=== PATIENT | male | born 1940 | race Caucasian/White ===

== ENCOUNTER → 2020-02-16 | Outpatient (CLI) | payer MEDICARE, OTHER ==
--- NOTE | 2020-02-18 10:21 | ONC ---
[place] [address] RADIATION ONCOLOGY NOTE Name: BABITA GODINEZ Room: [facility]#: [id number] Admission: 02/16/20 Attend Phys: Kayode Willingham MD Discharge: Date of : 38 Report #: [id number] THIS REPORT FOR: //name// CC: Kayode Hobson DATE OF PROCEDURE: 02/16/2020 PROCEDURE NOTE REFERRING PHYSICIANS: Dr. Tank Herrmann, Dr. Ramirez Hobson and Dr. Wayne Rico. 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 PROCEDURE: Nasopharyngolaryngoscopy. FINDINGS: On nasopharyngolaryngoscopy, after application of 2% viscous lidocaine to the left nostril and 2% viscous lidocaine orally, there were no suspicious visible lesions in the left nostril, there were no suspicious visible lesions in the nasopharynx and no suspicious visible lesions in the posterior oropharynx. True vocal cords were normally mobile bilaterally without any visible lesions. Thank you for allowing me to participate in the care of this patient. <ELECTRONICALLY SIGNED> By: Kayode Willingham MD 02/18/20 1021 [id number] [id number] Willingham MD /nt
--- NOTE | 2020-02-18 10:30 | ONC ---
[address] [address] RADIATION ONCOLOGY NOTE Name: BABITA GODINEZ Room: [facility].#: [id number] Admission: 02/16/20 Attend Phys: Kayode Willingham MD Discharge: Date of : 38 Report #: [id number] THIS REPORT FOR: //name// CC: Kayode Hobson DATE OF SERVICE: 02/16/2020 RADIATION ONCOLOGY CONSULT NOTE [facility] REFERRING PHYSICIANS: Include Wayne Rico MD, Dr. Tank Herrmann and Dr. Ramirez Hobson. PRIMARY SITE AND HISTOPATHOLOGY: The patient underwent resection of a right oral cavity cancer via a right partial glossectomy and right pharyngectomy for a squamous cell cancer. He had positive margin on the right pharyngeal specimen. HISTORY OF PRESENT ILLNESS: The patient indicated that he had a lesion involving the right oral cavity for several months, at least since 12/2019. He had a CT scan of the chest on 01/01/2020, which showed old granulomatous disease. He also had a CT of the soft neck, which showed asymmetry of the left oropharyngeal mucosal space. The patient went on to undergo a biopsy on 12/19/2019 of the right retromolar trigone, which revealed invasive squamous cell cancer and he went on to undergo a right partial glossectomy and right pharyngectomy. The glossectomy specimen revealed invasive well-differentiated squamous cell cancer, which was 0.9 cm in greatest dimension with a depth of invasion of 0.2 cm and the margins were negative for malignancy. 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 There was no lymphovascular invasion or perineural invasion. He does wear partials in the lower mouth and he also does wear upper dentures and he presents to discuss the possible role of radiation therapy. PAST MEDICAL HISTORY AND PAST SURGICAL HISTORY: He has hypertension. MEDICATIONS: Include ProAir, aspirin, carvedilol, Combivent inhaler, levocetirizine and tramadol as needed. ALLERGIES: He really does not have any specific allergies. ANTIBIOTICS AND PAIN MEDICINES [place] [address] RADIATION ONCOLOGY NOTE Name: BABITA GODINEZ Room: [facility]#: [id number] Admission: 02/16/20 Attend Phys: Kayode Willingham MD Discharge: Date of : 38 Report #: [id number] FAMILY HISTORY: Colon cancer in a brother. SOCIAL HISTORY: The patient is retired. He is . He has 2 sons and smokes about 2-3 cigars per day. He used to smoke cigarettes and he changed to cigars and has been smoking for 63 years. Ethanol: at this time he does not drink alcohol containing drinks, but he did drink alcohol-containing drinks in the past. REVIEW OF SYSTEMS: GENERAL: He denied having fevers or chills. SKIN: He denied having color changes. LYMPH NODES: He denied having enlarged or painful glands in the neck. ENDOCRINE: He denied any hot or cold intolerance. HEMATOLOGY AND IMMUNOLOGY: He denied having any anemia. MUSCULOSKELETAL: He does have arthritis. HEAD AND NECK: He does have a sore throat. RESPIRATORY: He does get short of breath with moderate exertion. CARDIOVASCULAR: He denied having any palpitations. GASTROINTESTINAL: He denied having nausea or vomiting. NEUROLOGIC: He denied having any focal weakness. PHYSICAL EXAMINATION: VITAL SIGNS: Height 5 feet 6 inches, weight 113.4 pounds, blood pressure 182/62, pulse 57, temperature 98.6 degrees Fahrenheit, oxygen 97%. GENERAL: He was alert and oriented LYMPH NODES: He had no palpable cervical or supraclavicular lymphadenopathy. HEAD, EARS, NOSE AND THROAT: Mouth did have a small nodular area in the right pharyngeal area. There were no palpable suspicious masses. On nasopharyngolaryngoscopy, after 2% viscous lidocaine orally, 2% viscous lidocaine to the left nostril, there were no suspicious visible lesions in the left nostril or the nasopharynx or posterior oropharynx. The true vocal cords were normally mobile bilaterally. EYES: Pupils were equal, round, and reactive to light and accomodation. HEART: Had a regular rate and rhythm without murmur. LUNGS: were clear to auscultation. ABDOMEN:Not tender. Spleen was not palpable. Liver was at the costal margin. EXTREMITIES: No clubbing, cyanosis or edema. NEUROLOGIC: Cranial nerves 2-12 are intact. Sensation was intact. He had 4/5 strength in his extremities. He still has some lower teeth. ASSESSMENT AND PLAN: The patient had a positive margin at the area of resection of an oral cavity/pharyngeal cancer. So, he was offered postoperative radiation therapy because of the positive margin. He will be a good candidate for intensity modulated radiation therapy. I will probably go ahead and order a scan and to further stage the patient [place] [address] RADIATION ONCOLOGY NOTE Name: BABITA GODINEZ Room: [facility]#: [id number] Admission: 02/16/20 Attend Phys: Kayode Willingham MD Discharge: Date of : 38 Report #: [id number] medical oncologist, Dr. Basilio after the scan to see if there is any role for any other systemic therapy. The risks, benefits, logistics of radiation therapy were explained to the patient in detail. The patient gave his witnessed, informed consent to proceed with radiation therapy. Thank you very much for this consult. <ELECTRONICALLY SIGNED> By: Kayode Willingham MD 02/18/20 1030 [id number] Willingham MD /nt
== END ==
LOC: M.RTH 13:00
PROVIDERS: ATTEND Radiology Radiation Oncology
DX: Z08 Encounter for follow-up examination after completed treatment for malignant neoplasm (principal); Z85.818 Personal history of malignant neoplasm of other sites of lip, oral cavity, and pharynx

== ENCOUNTER 2020-05-04 18:38 | Inpatient (IN) | payer MEDICARE, OTHER ==
[~2020-05-04] VITALS: Ht 167.6 cm; Wt 46.3 kg
[2020-05-04 18:45] VITALS: BP 128/97
[2020-05-04 19:02] LABS: ABSOLUTE LYMPHOCYTES 0.2 thou/uL (0.8-5.3); ABSOLUTE MONOCYTES 0.4 thou/uL (0.0-1.2); BASOPHILS 0.3 %; EOSINOPHILS 0.4 %; HEMATOCRIT 42.3 % (42.0-52.0); HEMOGLOBIN 14.3 gm/dL (14.0-18.0); LYMPHOCYTES 6.3 %; MCH 32.3 pg (26.0-34.0); MCHC 33.8 g/dL (28.0-37.0); MCV 95.6 fL (80.0-100.0); MONOCYTES 14.4 %; MPV 6.7 fl. (7.2-11.1); NUCLEATED RBCS 0 /100WBC; PLATELET COUNT* 168 thou/uL (150-400); POLYS 78.6 %; RBC 4.43 mil/uL (4.50-6.00); RDW-CV 13.9 % (10.5-14.5); WBC 2.5 thou/uL (4.0-11.0)
[2020-05-04 19:11] LABS: CALCIUM 8.9 mg/dL (8.5-10.1); CREATININE 1.2 mg/dL (0.6-1.3); POTASSIUM 4.3 mmol/L (3.5-5.1)
[2020-05-04 19:13] LABS: APTT 26.3 Seconds (25.0-31.3); INR 1.4; PROTIME 14.2 Seconds (9.20-11.50)
[2020-05-04] MEDS ORDERED: COREG6.25 MG PO (19:20)
[2020-05-04] MEDS ORDERED: ASA81BEC PO (19:20)
[2020-05-04] MEDS ORDERED: ACETAMINOPHEN500 M1 PO (19:20)
[2020-05-04] MEDS ORDERED: MAGIC MOUTHWASH SWISH&SPIT (19:21)
[2020-05-04] MEDS ORDERED: FISH OIL 1,0001 EAC9 PO (19:21)
[2020-05-04 19:22] LABS: ALBUMIN 3.4 g/dL (3.4-5.0); TOTAL BILIRUBIN 0.9 mg/dL (<0.1-1.0); TOTAL PROTEIN 6.9 g/dL (6.4-8.2)
[2020-05-04] MEDS ORDERED: NORCO 5-325 TA1 EAC2 PO (19:22)
[2020-05-04] MEDS ORDERED: ATROVENT HFA14 GM INH (19:23)
[2020-05-04] MEDS ORDERED: SUPER THERAVIT1 EACH PO (19:24)
[2020-05-04] MEDS ORDERED: ONDANSETRON ODT8 MG PO (19:24)
[2020-05-04] MEDS ORDERED: XYZAL5 MG PO (19:24)
[2020-05-04] MEDS ORDERED: SUPER BETA PROSTATE (19:25)
[2020-05-04] MEDS ORDERED: PROAIR HFA8.5 GM INH (19:25)
[2020-05-04] MEDS ORDERED: SSD CREAM 1% 5050 GM TOP (19:25)
[2020-05-04] MEDS ORDERED: VITAMIN D310 MC2 PO (19:26)
[2020-05-04 21:44] VITALS: BP 119/55
[2020-05-04 22:00] VITALS: BP 197/76
[2020-05-05] VITALS: BP 152/76
[2020-05-05 04:00] VITALS: BP 152/59
[2020-05-05 08:40] VITALS: BP 194/76
[2020-05-05 10:15] LABS: CALCIUM 7.8 mg/dL (8.5-10.1); CREATININE 0.6 mg/dL (0.6-1.3); POTASSIUM 3.6 mmol/L (3.5-5.1)
[2020-05-05 10:18] LABS: MAGNESIUM 1.9 mg/dL (1.8-2.4); PHOSPHORUS* 2.1 mg/dL (2.5-4.9)
[2020-05-05 12:28] VITALS: BP 149/75
[2020-05-05 17:02] VITALS: BP 159/69
[2020-05-05 21:00] VITALS: BP 160/65
[2020-05-05 22:30] LABS: URINE BILIRUBIN NEGATIVE (Negative); URINE BLOOD NEGATIVE (Negative); URINE CLARITY CLEAR; URINE COLOR YELLOW; URINE GLUCOSE-RANDOM NEGATIVE (Negative); URINE KETONES 1+ (Negative); URINE LEUKOCYTES-REFLEX NEGATIVE (Negative); URINE NITRITE-REFLEX NEGATIVE (Negative); URINE PROTEIN NEGATIVE (Negative); URINE SPECIFIC GRAVITY 1.025 (1.005-1.030)
[2020-05-06] VITALS: BP 169/79
[2020-05-06 04:34] LABS: HEMATOCRIT 31.7 % (42.0-52.0); MCH 32.6 pg (26.0-34.0); MCHC 34.9 g/dL (28.0-37.0); MCV 93.3 fL (80.0-100.0); MPV 6.8 fl. (7.2-11.1); RBC 3.39 mil/uL (4.50-6.00); RDW-CV 13.3 % (10.5-14.5)
[2020-05-06 04:58] LABS: CALCIUM 7.5 mg/dL (8.5-10.1); CREATININE 0.6 mg/dL (0.6-1.3); MAGNESIUM 1.6 mg/dL (1.8-2.4)
[2020-05-06 05:37] LABS: HEMOGLOBIN 11.1 gm/dL (14.0-18.0); POTASSIUM 2.8 mmol/L (3.5-5.1); WBC 1.3 thou/uL (4.0-11.0)
[2020-05-06 05:40] VITALS: BP 156/68
[2020-05-06 08:00] VITALS: BP 170/58
--- NOTE | 2020-05-06 08:56 | EKG ---
[place] [address] ELECTROCARDIOGRAM REPORT Name: BABITA GODINEZ Room: [address] ADM IN M.R.#: [id number] Admission: 05/04/20 Attend Phys: Carlos Eduardo Barnard, Discharge: Date of : 38 Date of Service: 05/04/20 1849 Report #: [id number] THIS REPORT FOR: //name// [facility] ED Test Date: 2020-05-04 Test Time: 18:49:45 Pat Name: BABITA GODINEZ Department: Room: [facility] Gender: M Laboratory Apparatus [employer]: [place] : [id number] Requested By: Fabiano Roman Order Number: [id number] MD: Gab Cruz Measurements Intervals [place] Rate: 157 P: MO: QRS: 83 QRSD: 87 T: -88 QT: 261 QTc: 422 Interpretive Statements Atrial fibrillation with rapid V-rate Borderline right axis deviation Repolarization abnormality, prob rate related Baseline wander in lead(s) II,aVR,aVF,V3 No previous ECG available for comparison Electronically Signed On 05-06-2020 8:56:13 [employer]ANDER [employer] by Gab Cruz [email or web address] <ELECTRONICALLY SIGNED> By: Gab Cruz MD, FACC 05/06/20 0856 184 Gab Cruz MD, FAC /EPI
[2020-05-06 15:56] VITALS: BP 134/73
[2020-05-06 20:00] VITALS: BP 133/79
[2020-05-07 00:22] VITALS: BP 125/53
[2020-05-07 04:15] VITALS: BP 112/51
[2020-05-07 04:38] LABS: HEMATOCRIT 30.6 % (42.0-52.0); HEMOGLOBIN 10.7 gm/dL (14.0-18.0); MCH 32.3 pg (26.0-34.0); MCHC 34.9 g/dL (28.0-37.0); MCV 92.6 fL (80.0-100.0); RBC 3.31 mil/uL (4.50-6.00); RDW-CV 13.2 % (10.5-14.5)
[2020-05-07 05:13] LABS: WBC 1.6 thou/uL (4.0-11.0)
[2020-05-07 05:14] LABS: CALCIUM 7.6 mg/dL (8.5-10.1); CREATININE 0.7 mg/dL (0.6-1.3); MAGNESIUM 1.6 mg/dL (1.8-2.4); POTASSIUM 3.1 mmol/L (3.5-5.1)
[2020-05-07 08:09] VITALS: BP 151/61
[2020-05-07 12:39] VITALS: BP 122/60
--- NOTE | 2020-05-07 14:21 | CON ---
[address] [address] CONSULTATION Name: HERBERTBABITA Cinda Room: [address] IN M.R.#: [id number] Admission: 05/04/20 Attend Phys: Carlos Eduardo Barnard MD Discharge: Date of : 38 Report #: [id number] THIS REPORT FOR: //name// cc: Physician not on staff Physician not on staff ~ DATE OF SERVICE: 05/05/2020 HISTORY OF PRESENT ILLNESS: This is a pleasant 79-year-old gentleman with past medical history significant for head and neck cancer, status post resection and radiation, who is presenting with inability to swallow solids and liquids. The patient reports pain with swallowing as well as intermittent cough and expectoration. The patient was offered a PEG tube placement in the past, but refused, but is now ready for PEG tube placement. He denies having a prior EGD in the past. PAST MEDICAL HISTORY: Hypertension, SCC of the tongue. PAST SURGICAL HISTORY: Resection and radiation to the head and neck region. SOCIAL HISTORY: The patient has a 1-pack-year smoking history. Denies alcohol or recreational drug use. FAMILY HISTORY: No family history of GI malignancies. REVIEW OF SYSTEMS: Comprehensive 10-point review of systems is negative except for what was mentioned in the HPI. PHYSICAL EXAMINATION: VITAL SIGNS: Temperature 36.7, pulse rate 57, respirations 19, blood pressure 152/59, pulse ox 94%. GENERAL: The patient is alert, awake, oriented x 3. HEENT: Pupils are equal, round, reactive to light and accommodation. Mucous membranes are moist. There is no congestion. LUNGS: Clear to auscultation bilaterally. CARDIOVASCULAR: Rate and rhythm regular, S1, S2 present. ABDOMEN: Soft. There is no distention, guarding or rigidity. EXTREMITIES: Warm, well perfused. There is no clubbing or edema. LABORATORY DATA: Hemoglobin 14.3, hematocrit 42.3, platelet count 168, WBC count 2.5. INR 1.4. Sodium 137, potassium 3.6, chloride 101, bicarbonate 28, BUN 25, creatinine 0.6. ASSESSMENT AND PLAN: Pleasant 79-year-old male presenting with painful swallowing and dysphagia, status post resection [place] [address] CONSULTATION Name: BABITA GODINEZ Room: [address] IN [facility]#: [id number] Admission: 05/04/20 Attend Phys: Carlos Eduardo Barnard MD Discharge: Date of : 38 Report #: [id number] cancer of the posterior tongue. I will proceed with EGD and possible PEG tube placement tomorrow. The benefits and risks of the procedure have been discussed with the patient. Further recommendations will be based on the results of the procedures. <ELECTRONICALLY SIGNED> By: Jaime Ontiveros MD 05/07/20 1421 1025 Sudhir Ontiveros MD /anabelle
[2020-05-07 17:27] VITALS: BP 136/61
[2020-05-07 20:15] VITALS: BP 114/66
[2020-05-08] VITALS: BP 136/61
[2020-05-08 04:00] VITALS: BP 150/53
[2020-05-08 04:01] LABS: ABSOLUTE LYMPHOCYTES 0.1 thou/uL (0.8-5.3); ABSOLUTE MONOCYTES 0.3 thou/uL (0.0-1.2); ABSOLUTE NEUTROPHILS 1.8 thou/uL (1.6-8.1); BASOPHILS 0.5 %; EOSINOPHILS 1.1 %; HEMATOCRIT 28.9 % (42.0-52.0); HEMOGLOBIN 10.1 gm/dL (14.0-18.0); LYMPHOCYTES 4.4 %; MCH 32.4 pg (26.0-34.0); MCHC 35.1 g/dL (28.0-37.0); MCV 92.5 fL (80.0-100.0); MONOCYTES 11.8 %; MPV 6.7 fl. (7.2-11.1); NUCLEATED RBCS 0 /100WBC; PLATELET COUNT* 100 thou/uL (150-400); POLYS 82.2 %; RBC 3.12 mil/uL (4.50-6.00); WBC 2.2 thou/uL (4.0-11.0)
[2020-05-08 04:26] LABS: ALBUMIN 2.1 g/dL (3.4-5.0); CREATININE 0.8 mg/dL (0.6-1.3); TOTAL BILIRUBIN 0.6 mg/dL (<0.1-1.0); TOTAL PROTEIN 4.9 g/dL (6.4-8.2)
[2020-05-08 08:35] VITALS: BP 149/69
[2020-05-08 12:11] VITALS: BP 143/70
[2020-05-08 16:05] VITALS: BP 146/66
[2020-05-08 20:00] VITALS: BP 123/63
[2020-05-09] VITALS (7 sets, daily range): BP systolic 103–134; BP diastolic 52–78
[2020-05-09 04:30] LABS: ABSOLUTE LYMPHOCYTES 0.1 thou/uL (0.8-5.3); ABSOLUTE MONOCYTES 0.2 thou/uL (0.0-1.2); ABSOLUTE NEUTROPHILS 2.2 thou/uL (1.6-8.1); BASOPHILS 0.3 %; EOSINOPHILS 0.9 %; HEMATOCRIT 32.2 % (42.0-52.0); HEMOGLOBIN 11.1 gm/dL (14.0-18.0); LYMPHOCYTES 4.2 %; MCH 32.2 pg (26.0-34.0); MCHC 34.3 g/dL (28.0-37.0); MCV 93.7 fL (80.0-100.0); MONOCYTES 9.3 %; NUCLEATED RBCS 0 /100WBC; PLATELET COUNT* 118 thou/uL (150-400); POLYS 85.3 %; RBC 3.44 mil/uL (4.50-6.00); RDW-CV 13.6 % (10.5-14.5); WBC 2.6 thou/uL (4.0-11.0)
[2020-05-09 04:57] LABS: ALBUMIN 2.3 g/dL (3.4-5.0); CALCIUM 8.1 mg/dL (8.5-10.1); CREATININE 0.7 mg/dL (0.6-1.3); POTASSIUM 3.5 mmol/L (3.5-5.1); TOTAL BILIRUBIN 0.5 mg/dL (<0.1-1.0); TOTAL PROTEIN 5.1 g/dL (6.4-8.2)
[2020-05-10 04:43] LABS: HEMATOCRIT 29.4 % (42.0-52.0); HEMOGLOBIN 10.2 gm/dL (14.0-18.0); MCH 32.4 pg (26.0-34.0); MCHC 34.7 g/dL (28.0-37.0); MCV 93.3 fL (80.0-100.0); MPV 7.4 fl. (7.2-11.1); NUCLEATED RBCS 0 /100WBC; PLATELET COUNT* 106 thou/uL (150-400); RBC 3.15 mil/uL (4.50-6.00); RDW-CV 13.7 % (10.5-14.5)
[2020-05-10 04:59] LABS: WBC 1.9 thou/uL (4.0-11.0)
[2020-05-10 05:09] LABS: ALBUMIN 2.2 g/dL (3.4-5.0); CREATININE 0.7 mg/dL (0.6-1.3); POTASSIUM 3.3 mmol/L (3.5-5.1); TOTAL BILIRUBIN 0.4 mg/dL (<0.1-1.0)
[2020-05-10 05:16] VITALS: BP 138/45
[2020-05-10 07:57] LABS: ABSOLUTE LYMPHOCYTES 0.4 thou/uL (0.8-5.3); ABSOLUTE MONOCYTES 0.2 thou/uL (0.0-1.2); ABSOLUTE NEUTROPHILS 1.3 thou/uL (1.6-8.1)
[2020-05-10 07:58] LABS: PLATELET ESTIMATE ADEQUATE
[2020-05-10 08:00] VITALS: BP 138/54
[2020-05-10] MEDS ORDERED: POTASSIUM20 MEQ/15 PERTUBE (08:25)
[2020-05-10 11:30] VITALS: BP 138/69
[2020-05-10 17:00] VITALS: BP 149/69
[2020-05-10 20:10] VITALS: BP 135/66
[2020-05-11 05:22] VITALS: BP 168/80
[2020-05-11] MEDS ORDERED: LEVOFLOXAC250 MG/10 PER TUBE (08:35)
[2020-05-11 09:00] VITALS: BP 150/66
[2020-05-11 12:37] VITALS: BP 131/57
[2020-05-11 16:39] VITALS: BP 158/66
[2020-05-11 20:00] VITALS: BP 100/76
[2020-05-12] VITALS: BP 153/74
[2020-05-12 04:00] VITALS: BP 143/80
[2020-05-12 08:00] VITALS: BP 149/72
[2020-05-12 13:24] VITALS: BP 142/63
[2020-05-12 16:45] VITALS: BP 132/69
[2020-05-12 20:00] VITALS: BP 131/60
[2020-05-13] VITALS (7 sets, daily range): BP systolic 116–165; BP diastolic 56–88
[2020-05-14 03:52] VITALS: BP 148/82
[2020-05-14 08:20] VITALS: BP 142/53
[2020-05-14 10:41] LABS: ABSOLUTE LYMPHOCYTES 0.2 thou/uL (0.8-5.3); ABSOLUTE MONOCYTES 0.3 thou/uL (0.0-1.2); ABSOLUTE NEUTROPHILS 1.8 thou/uL (1.6-8.1); BASOPHILS 0.6 %; EOSINOPHILS 0.8 %; HEMATOCRIT 31.2 % (42.0-52.0); HEMOGLOBIN 10.7 gm/dL (14.0-18.0); LYMPHOCYTES 7.4 %; MCH 32.3 pg (26.0-34.0); MCHC 34.5 g/dL (28.0-37.0); MCV 93.6 fL (80.0-100.0); MONOCYTES 13.8 %; MPV 6.5 fl. (7.2-11.1); NUCLEATED RBCS 0 /100WBC; PLATELET COUNT* 133 thou/uL (150-400); POLYS 77.4 %; RBC 3.33 mil/uL (4.50-6.00); RDW-CV 14.4 % (10.5-14.5); WBC 2.3 thou/uL (4.0-11.0)
[2020-05-14 12:30] VITALS: BP 141/49
[2020-05-14 12:49] VITALS: BP 141/49
[2020-05-14 12:50] VITALS: BP 141/49
[2020-05-14 16:14] VITALS: BP 141/49
== END 2020-05-14 16:59 | disposition home health service (06) | DRG 391 ==
LOC: M.ERS 18:38 → M.TBA-ER 20:25 → M.2W 20:25
PROVIDERS: Family Medicine; Nurse Practitioner; ADMIT Internal Medicine; ATTEND Internal Medicine
PROC: 0DH63UZ Insertion of Feeding Device into Stomach, Percutaneous Approach (ICD-10-PCS; principal; 2020-05-06)
DX: R13.13 Dysphagia, pharyngeal phase (principal); D61.810 Antineoplastic chemotherapy induced pancytopenia; I48.20 Chronic atrial fibrillation, unspecified; E44.0 Moderate protein-calorie malnutrition; Z68.1 Body mass index [BMI] 19.9 or less, adult; C14.0 Malignant neoplasm of pharynx, unspecified; F17.210 Nicotine dependence, cigarettes, uncomplicated; D72.819 Decreased white blood cell count, unspecified; J44.9 Chronic obstructive pulmonary disease, unspecified; E87.6 Hypokalemia; E86.9 Volume depletion, unspecified; Y84.2 Radiological procedure and radiotherapy as the cause of abnormal reaction of the patient, or of later complication, without mention of misadventure at the time of the procedure; I10 Essential (primary) hypertension; T45.1X5A Adverse effect of antineoplastic and immunosuppressive drugs, initial encounter; Z20.828 Contact with and (suspected) exposure to other viral communicable diseases; Z92.21 Personal history of antineoplastic chemotherapy; Z79.82 Long term (current) use of aspirin; Z79.899 Other long term (current) drug therapy; Y92.89 Other specified places as the place of occurrence of the external cause

== ENCOUNTER → 2020-08-12 | Outpatient (CLI) | payer MEDICARE, OTHER ==
[~2020-08-12] MED LIST: ACETAMINOPHEN500 M1 PO; ASA81BEC PO; ATROVENT HFA14 GM INH; COREG6.25 MG PO; FISH OIL 1,0001 EAC9 PO; LEVOFLOXAC250 MG/10 PER TUBE; MAGIC MOUTHWASH SWISH&SPIT; NORCO 5-325 TA1 EAC2 PO; ONDANSETRON ODT8 MG PO; POTASSIUM20 MEQ/15 PERTUBE; PROAIR HFA8.5 GM INH; SSD CREAM 1% 5050 GM TOP; SUPER BETA PROSTATE; SUPER THERAVIT1 EACH PO; VITAMIN D310 MC2 PO; XYZAL5 MG PO
== END | disposition home or self-care (01) ==
LOC: M.INT 08:47
PROVIDERS: ATTEND Radiology Radiation Oncology
DX: Z43.1 Encounter for attention to gastrostomy (principal); Z85.818 Personal history of malignant neoplasm of other sites of lip, oral cavity, and pharynx; I48.91 Unspecified atrial fibrillation; Z98.890 Other specified postprocedural states; Z79.899 Other long term (current) drug therapy; Z79.01 Long term (current) use of anticoagulants